=== PATIENT | female | born 1940 | race Caucasian/White ===

== ENCOUNTER 2019-09-14 09:34 | Outpatient (RCR) | payer MEDICARE, SELFPAY ==
--- NOTE | 2019-09-14 12:45 | ONC FU_ITS ---
Dr. Dickerson follow up note Patient: Shikha Rivera Unit #: [id number]: 1940 Dicatated By: Markie Dickerson M.D.Date of Visit:Sep 14, 2019 Onc Med Follow-up/Prog Note History of Present Illness: Mrs. Shikha Leo, is a 78-year-old female with distended history of left breast cancer, as per patient about 30 years ago she underwent left mastectomy with lymph node removal and no adjuvant treatment was offered at that time. Now patient has history of recurrent pneumonias and CT scan of chest done on 04/04/2019 showed right lower lobe superior segment mass measuring 2.3 x 2.9 x 2.8 cm with central cavitation. And also less well-defined masses present in the right middle lobe measuring 1.7 x 1.7 cm and in the posterior segment of right upper lobe is another lesion which is improving measuring 5.2 x 2.2 cm patient denies any hemoptysis or hematemesis, CT PET scan was done on 04/21/2019 which showed malignant the right lower lobe mass with central cavitation, to malignant satellite right lung nodules and malignant mediastinal lymphadenopathy, subsequently she was referred to Dr. Rivas for evaluation and underwent mediastinoscopy bronchoscopy on 05/16/2019, which showed metastatic non-small cell carcinoma adenocarcinoma. As patient has long-standing history of breast cancer so there was a concern about whether this is recurrence of disease or lung is a primary so cancer type ID was done which confirmed adenocarcinoma of the lung and molecular studies were negative for EGFR, ALK, ROS1 , PDL 1, BRAF . Had CT scan of chest done on 09/06/1999 9:15 which showed interval enlargement of mass in the right lower lobe measuring up to 5.4 cm and interval enlargement of mediastinal lymph node measuring up to 2 cm and not area of opacity/consolidation the right upper lobe. Patient has long standing history of smoking and still active.Patient is a diabetic Came for follow-up, denies any specific complaints, no hemoptysis or hematemesis, no nausea or vomiting, no headaches or blurred vision double vision, no fever or chills, no bony pains. Medications: amLODIPine Besylate 1 Tablet (of 10 mg) Oral daily, Citalopram Hydrobromide 1 Tablet (of 20 mg) Oral daily, Colestipol HCl 1 Tablet (of 1 G) Oral b.i.d., Eliquis 1 Tablet (of 5 mg) Oral b.i.d., Famotidine 1 Tablet (of 20 mg) Oral b.i.d., Furosemide 1 Tablet (of 40 mg) Oral daily, Glimepiride 1 Tablet (of 4 mg) Oral daily, hydrALAZINE HCl 1 Tablet (of 100 mg) Oral t.i.d., Invokana 1 Tablet (of 100 mg) Oral daily, Lantus SoloStar (100 Units/mL) Subcutaneous Take as Directed, Losartan Potassium 1 Tablet (of 100 mg) Oral daily, Pantoprazole Sodium 1 Tablet (of 40 mg) Tablet, enteric coated Oral daily, Potassium Chloride ER 1 Tablet (of 10 meq) Tablet, controlled release Oral on Every Other Day, rOPINIRole HCl 1 Tablet (of 4 mg) Oral b.i.d. PRN, Terazosin HCl 1 Capsule (of 1 mg) Oral at bedtime Allergies: Penicillins Review of Systems: Review of Systems is not available for this patient. Vital Signs: Performed on Sep 14, 2019 10:25 Height - 62.00 in Weight - 170.8 lbs (LOW) BSA - 1.79 sq.m BMI - 31.24 (HIGH) Temperature - 97.3 F (LOW) Pulse - 52 /min (LOW) Respiration - 24 /min BP - 140/47 mm(hg) O2 Sat - 92 % (LOW) Pain - 0 Performance Status: 2 - Ambulatory/capable of all self-care, unable to perform any work activities. Up and about more than 50% of waking hours. (ECOG) Physical Examination: ENMT - No oral exudates, ulcers, masses, thrush or mucositis. Oropharynx clear. Tongue normal, Respiratory - Lungs are clear to auscultation without rhonchi or wheezing, Cardiovascular - Regular rate and rhythm of heart, Abdomen - Non-tender, non-distended, Good bowel sounds. No guarding or rebound tenderness. No pulsatile masses, Extremities - no edema. Lab/Imaging: Most recent lab results are not available for this patient. Impression: Adenocarcinoma per right paratracheal lymph node biopsy per mediastinoscopy done on 05/16/2019 CT PET scan done on 04/21/2019 showed 3.5 x 3.3 cm right lower lobe mass with central cavitation SUV of 11.5 Right upper lobe satellite nodule 0.9 x 1.4 cm with SUV of 4.1 and another lesion 1.9 x 4.5 cm with SUV of 5.7 and right paratracheal lymph node measuring 2.3 x 1.6 cm with SUV of 4.6 No evidence of distance metastatic disease.Cancer type ID confirmed lung is a primary and molecular studies shows negative for target therapy History of left breast cancer status post left mastectomy with left axillary lymph node dissection, done about 30 years ago, No adjuvant therapy was offered Plan: Discussed with patient and family regarding patient's disease status and treatment options. Cancer type ID has confirmed that patient has adenocarcinoma involving the right lung and molecular studies done including EGFR, ALK, ROS1, PDL 1,BRAF came back negative at this point, considering her age and comorbid conditions we'll consider palliative therapy with modified weekly carboplatin and Taxol e.g. carboplatin AUC 1.5 Taxol 40 mg/m??? weekly 3 weeks on 1 week off, as long as tolerated. Concern is diabetes and hyperglycemia related to high-dose steroids used as premedication for Taxol. We will consider a regular insulin and sliding scale to control hyperglycemia due to steroids if not then we may consider substituting Abraxane for Taxol as with Abraxane there is no need for premedication with steroids. All the side effect possible benefits associated with chemotherapy including bone marrow suppression, allergic reaction especially with Taxol were discussed patient expressed understanding further teaching done by chemotherapy nurse. In the meantime role of hospice was also discussed but patient and family will also try treatment and if she could not tolerate then they may consider hospice. We will also give Port-A-Cath placement. Patient return to clinic 1 week after palliative chemotherapy is initiated. The patient tolerated chemotherapy well and follow-up scan shows good response then we may consider consulting radiation therapy. Signed By: Markie Dickerson M.D. <<Signature on File>>
== END 2019-10-05 23:59 | disposition home or self-care (01) ==
LOC: ONCMED 09:34
PROVIDERS: Family Provider Nurse Practitioner Family; PCP Nurse Practitioner Family; Visit Provider Internal Medicine Hematology & Oncology
DX: C34.31 Malignant neoplasm of lower lobe, right bronchus or lung (principal); C77.1 Secondary and unspecified malignant neoplasm of intrathoracic lymph nodes; F17.210 Nicotine dependence, cigarettes, uncomplicated; E11.9 Type 2 diabetes mellitus without complications; Z79.4 Long term (current) use of insulin; Z85.3 Personal history of malignant neoplasm of breast; Z90.12 Acquired absence of left breast and nipple; Z87.01 Personal history of pneumonia (recurrent)
CPT/HCPCS: 99214